=== PATIENT | female | born 1950 | race Caucasian/White ===

== ENCOUNTER 2022-06-12 18:20 | Emergency (ER) | payer MEDICARE ==
[~2022-06-12] VITALS: Ht 152.4 cm; Wt 52.7 kg
[2022-06-12 19:07] LABS: BASOPHILS % (AUTO) 0.4 % (0-1); EOSINOPHILS # (AUTO) 0.7 X10'3 (0-0.9); EOSINOPHILS % (AUTO) 5.4 % (0-6); HEMATOCRIT 28.5 % (35.0-45.0); HEMOGLOBIN 9.2 g/dl (12.0-16.0); LYMPHOCYTES # (AUTO) 1.6 X10'3 (1.1-4.8); MEAN CORPUSCULAR HEMOGLOBIN 23.6 PG (27.0-31.0); MEAN CORPUSCULAR HGB CONC 32.5 g/dL (33.0-36.5); MEAN CORPUSCULAR VOLUME 72.8 FL (78-98); MEAN PLATELET VOLUME 6.6 FL (7.4-10.4); MONOCYTES % (AUTO) 7.3 % (2-12); NEUTROPHILS # (AUTO) 9.8 X10'3 (1.8-7.7); NEUTROPHILS % (AUTO) 74.9 % (42-75); PLATELET COUNT 591 X10'3 (140-440); RED BLOOD COUNT 3.91 X10'6 (4.20-5.60); RED CELL DISTRIBUTION WIDTH 15.5 % (11.5-14.5); WHITE BLOOD COUNT 13.1 X10'3 (4.5-11.0)
[2022-06-12 19:15] LABS: ALANINE AMINOTRANSFERASE 44 U/L (12-78); ALBUMIN 2.2 G/DL (3.4-5.0); ALBUMIN/GLOBULIN RATIO 0.3 (1.1-1.5); ALKALINE PHOSPHATASE 389 IU/L (46-116); ANION GAP 10 (8-16); ASPARTATE AMINO TRANSFERASE 24 U/L (10-37); BILIRUBIN,TOTAL 0.3 MG/DL (0.1-1.0); BLOOD UREA NITROGEN 11 MG/DL (7-18); BUN/CREATININE RATIO 12.1 (6.6-38.0); CALCIUM 9.4 MG/DL (8.5-10.1); CHLORIDE 92 MMOL/L (99-107); CREATININE 0.91 MG/DL (0.40-0.90); GLUCOSE 189 MG/DL (70-104); POTASSIUM 3.7 MMOL/L (3.5-5.1); SODIUM 129 MMOL/L (135-145); TOTAL CARBON DIOXIDE 27.2 MMOL/L (24-32); eGFR 60 ML/MIN
[2022-06-13] MEDS ORDERED: PRAV40TA3 PO (00:29)
[2022-06-13] MEDS ORDERED: METF-437 PO (00:29)
[2022-06-13] MEDS ORDERED: AMLO2.5T2 PO (00:29)
[2022-06-13] MEDS ORDERED: IRBE1TAB33 PO (00:29)
[2022-06-13] MEDS ORDERED: PIOG15TA8 PO (00:29)
[2022-06-13] MEDS ORDERED: iohexol 350MG/ML 100ml bottle IV ONE (00:51)
[2022-06-13] MEDS ORDERED: normal saline 1000ml 1,000 ML IV ONE (01:00)
--- NOTE | 2022-06-13 03:30 | NUR ---
ASSUMED CARE OF PT FROM DENEEN ALVARADO, PT IS RESTING QUIETLY ON REARL
--- NOTE | 2022-06-13 05:00 | NUR ---
PT CONTINUES TO REST QUIETLY ON GURNEY
[2022-06-13] MEDS ORDERED: BENZ-38 PO (06:05)
--- NOTE | 2022-06-13 06:29 | NUR ---
DR SOLIS SAID PLAN IS TO WAIT FOR PULMONARY CONSULT FOR POSSIBLE BIOPSY OF LUNG
[2022-06-13 07:46] VITALS: BP 140/64
[2022-06-13] MEDS ORDERED: ringers solution, lacted 1,000 ML IV ONE (08:05)
== END 2022-06-13 08:48 | disposition home or self-care (01) ==
LOC: ER 18:21
DX: R91.8 Other nonspecific abnormal finding of lung field (principal); I10 Essential (primary) hypertension; E11.9 Type 2 diabetes mellitus without complications; E78.00 Pure hypercholesterolemia, unspecified; Z79.899 Other long term (current) drug therapy; Z79.84 Long term (current) use of oral hypoglycemic drugs
CPT/HCPCS: 36415; 71045; 71275; 74177; 80053; 83880; 84484; 85025; 93005; 96360; 99285; J3490; J7030; Q9967